=== PATIENT | male | born 1960 | race Caucasian/White ===

== ENCOUNTER 2022-12-09 13:36 | Emergency (ER) | payer OTHER ==
--- OUTSIDE RECORDS SUMMARY | 2022-12-09 13:40 | XMS REPORT | Continuity of Care Document ---
:1960 Author Organization [facility] t Address [address] [place] [address] Care Team Providers Name Role Phone Pcp, Patient Does Not Have A Primary Care Physician [id number] Sera Holley MD Attending Clinician Becky Heath MD Attending Clinician Agata Gerardo MA Attending Clinician Unavailable Tracie Eagle RN Attending Clinician Unavailable Only, Ang Db Test Attending Clinician Unavailable Nirmala Rm Attending Clinician NIRMALA MONIQUE Attending Clinician Unavailable Payers Payer Name Policy Type Policy Number Effective Date Expiration Date S ource Problems Condition Condition Condition Status Onset Resolution Last Treating Co mments Source Name Details Category Date Date Treatment Clinician Date 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 06-14 st 00:00: Hospita 00 l 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 00:00: Hospita due to due to 00 l lipid rich lipid rich plaque plaque Agatston Agatston Disease Active Metho di CAC score, CAC score, 03-20 st <100 <100 00:00: Hospita 00 l Allergies, Adverse Reactions, Alerts Allergy Allergy Status Severity Reaction(s) Onset Inactive Treating Comm ents Source Name Type Date Date Clinician NO KNOWN Drug Active Univers ALLERGIE Class ity of S [facility] Social History Social Habit Start Date Stop Date Quantity Comments Source Exposure to [facility]-CoV-2 [facility] (event) Branch Alcohol intake 2022-08-05 2022-08-05 Current drinker [facility] 00:00:00 00:00:00 of alcohol (finding) Tobacco use and 2022-02-26 2022-02-26 Smokeless tobacco [facility] Hospital exposure 00:00:00 00:00:00 non-user Alcohol Comment 2022-02-26 2022-02-26 [facility]00 twice per year Sex Ass[birth year] At [birth year] [facility] 00:00:00 00:00:00 Smoking Status Start Date Stop Date Source Unknown if ever smoked [facility] Never smoked tobacco [facility] ospital Medications Ordered Filled Start Stop Current Ordering Indication Dosage Frequency Signature Comments Components Source Medication Medication Date Date Medication? Clinician (SIG) Name Name cholecalcif Yes 2000U QD Take 2,000 Methodi silvia, 1-03 Units by vitamin D3, 13:33: mouth Hospi ta 50 mcg 12 daily. l (2,000 unit) capsule capsule ascorbic Yes 1000mg QD Take 1,000 M ethodi acid, 1-03 mg by vitamin C, 13:33: mouth Hospit a (VITAMIN C) 12 daily. l 1000 MG tablet multivitami Yes 1{tbl} QD Take 1 Me thodi n tablet 1-03 tablet by 13:33: mouth Hospita 12 daily. l zinc Yes 1{capsu QD Take 1 Methodi sulfate 1-03 le} capsule by (ZINCATE) 13:33: mouth Hospita 50 mg zinc 12 daily. l (220 mg) capsule atorvastati 2021-10- No [id number] 10mg QD Take 1 Methodi n (LIPITOR) 1-21 02-20 tablet (10 s t 10 mg 00:00: 05:59 mg total) Hospit a tablet 00 :00 by mouth l daily for 90 days. atorvastati 2021- No [id number] 10mg QD Take 1 Methodi n (LIPITOR) 8-25 11-21 tablet (10 s t 10 mg 00:00: 00:00 mg total) Hospit a tablet 00 :00 by mouth l daily for 90 days. atorvastati 2021- No [id number] 10mg QD Take 1 Methodi n (LIPITOR) 03-20 tablet (10 s t 10 mg 00:00: 00:00 mg total) Hospit a tablet 00 :00 by mouth l daily for 90 days. turmeric/tu 2020-10 Yes Method i rmeric 11-17 st ext/pepr 00:00: Hospita ext 00 l (turmeric-t urmeric ext-pepper) 900-100-5 mg capsule glucosamine 2020-10 Yes Method i -chondroit- 11-17 st vit C-Mn 00:00: Hospita capsule 00 l aspirin 2020-10- No 81mg Take 81 mg Met hodi (ECOTRIN) 10-[address] 81 MG 00:00: 00:00 Hospita enteric 00 :00 l coated tablet psyllium 2018-10 Yes Methodi husk 0.4 11-17 st gram 00:00: Hospita capsule 00 l No known No [facility] No [facility] medications [facility] No known No Univers medications [facility] Immunizations Ordered Immunization Filled Immunization Date Status Commen ts Source Name Name Zoster Vaccine 2022-08-05 Completed [facility] Recombinant 00:00:00 [facility] Zoster Vaccine 2022-02-26 Completed [facility] Recombinant 00:00:00 [facility] FLUZONE QUAD PF 2021-08-23 Completed [facility] 00:00:00 [facility] MODERNA COVID-19 2021-02-05 Completed Methodis t MRNA VACCINATION 00:00:00 Hospital MODERNA COVID-19 2021-01-08 Completed Methodis t MRNA VACCINATION 00:00:00 Hospital FLUZONE QUAD PF 2020-09-11 Completed [facility] 00:00:00 Hospital Tdap 2018-08-02 Completed [facility] 00:00:00 Hospital Zoster 2018-08-02 Completed [facility] 00:00:00 Hospital Vital Signs Vital Name Observation Time Observation Value Comments Source Systolic blood 2022-10-21 19:30:00 162 mm[Hg] Method ist Hospital pressure Diastolic blood 2022-10-21 19:30:00 85 mm[Hg] [facility] Hospital pressure Heart rate 2022-10-21 19:30:00 60 /min [facility] Respiratory rate 2022-10-21 19:30:00 18 /min [facility] Body height 2022-10-21 19:30:00 177.8 cm [facility] Body weight 2022-10-21 19:30:00 72.122 kg [facility] BMI 2022-10-21 19:30:00 22.81 kg/m2 [facility] Oxygen saturation in 2022-10-21 19:30:00 99 /min [facility] Arterial blood by Pulse oximetry Body temperature 2022-02-26 18:16:00 36.61 Amanda [facility] Procedures Procedure Date / Time Performing Clinician Source Performed CBC WITH PLATELET AND 2022-11-07 [facility]22-11-07 [facility] WITH INR 2022-11-07 15:15[facility]00 [facility] 2022-11-07 [facility] AND 2022-08-06 15:29:00 [facility] MICROSCOPY, WITH REFLEX TO CULTURE CBC WITH PLATELET AND 2022-08-06 12:23:00 [facility] DIFFERENTIAL COMPREHENSIVE METABOLIC 2022-08-06 12:23:00 [facility] PANEL HEMOGLOBIN A1C 2022-08-06 12:23:[address] [facility] THYROID STIMULATING 2022-08-06 12:23:00 [facility] HORMONE T4, FREE 2022-08-06 12:23:[address] [facility] LIPID PANEL 2022-08-06 12:23:[address] [facility] VITAMIN D 25 HYDROXY 2022-08-06 12:23:00 [facility] LEVEL HEPATITIS C ANTIBODY 2022-08-06 12:23:00 [facility] PROSTATE SPECIFIC ANTIGEN 2022-08-06 12:23:[address] [facility] ECG 12-LEAD 2022-08-05 20:28:[address] [facility] COMPREHENSIVE METABOLIC 2022-06-13 12:25:00 [facility] PANEL LIPID PANEL 2022-06-13 12:25:[address] [facility] CT CARDIAC CALCIUM SCORE 2022-03-11 19:45:42 [facility] T4, FREE 2022-02-26 19:41:[address] [facility] VITAMIN D 25 HYDROXY 2022-02-26 19:41:00 [facility] LEVEL URINALYSIS, COMPLETE, 2022-02-26 19:41:00 [facility] WITH REFLEX TO CULTURE HEPATIC FUNCTION PANEL 2022-02-26 19:41:00 [facility] THYROID STIMULATING 2022-02-26 19:41:00 [facility] HORMONE Plan of Care Planned Activity Planned Date Details Comments Source Future Scheduled 2022-12-09 Pneumococcal Vaccine: [facility] Test 09:20:34 Pediatrics (0 to 5 Years) and At-Risk Patients (6 to 64 Years) (1 - PCV) [code = Pneumococcal Vaccine: Pediatrics (0 to 5 Years) and At-Risk Patients (6 to 64 Years) (1 - PCV)] Future Scheduled 2022-12-09 COLONOSCOPY SCREENING [facility] Test 09:20:34 [code = COLONOSCOPY SCREENING] Encounters Start End Encounter Admission Attending Care Care Encounter Source Date/Time Date/Time Type Type Clinicians Facility Department ID 2022-12-09 2022-12-09 Refill Kishan 1.2.840.1 [id number] Methodi 00:00:00 00:00:[address] 3.430.2.7 Hospit a .3.782895 l .8 2022-10-21 2022-10-21 Office Rosey Heath2.840.1 [id number] Methodi 13:30:00 14:24:07 Visit Becky Croft 68167.1.[address] 3.430.2.7 Hospit a .3.944602 l .8 2022-10-21 2022-10-21 [facility] [id number] [place] 00:00:00 00:00:00 BECKY Hooper[address] [facility] [address] 2022-10-21 2022-10-21 Travel 1.2.840.1 1.2.357.426 [id number] Methodi 00:00:00 00:00:[address] 3.430.2.7 0.2.7.3.698 Ho spita .3.946849 084.8 l .8 2022-09-08 2022-09-08 Orders Kishan, 1.2.840.1 [id number] Methodi 00:00:00 00:00:00 Only Sera [address]2013.1.[address] 3.430.2.7 Hospit a .3.926287 l .8 2022-09-08 2022-09-08 Refill Kishan, 1.2.840.1 [id number] Methodi 00:00:00 00:00:[address] 3.430.2.7 Hospit a .3.311801 l .8 2022-08-22 2022-08-22 Abstract Akin, 1.2.840.1 [id number] 2099 [id number] Methodi 00:00:00 00:00:[address] 3.430.2.7 Hospit a .3.765680 l .8 2022-08-22 2022-08-22 Travel 1.2.840.1 1.2.418.948 5635 [id number] Methodi 00:00:00 00:00:[address] 3.430.2.7 0.2.7.3.698 Ho spita .3.184060 084.8 l .8 2022-08-22 2022-08-22 Telephone Akin, 1.2.840.1 [id number] Methodi 00:00:00 00:00:[address] 3.430.2.7 Hospit a .3.206489 l .8 2022-08-17 2022-08-17 Orders Kishan, 1.2.840.1 [id number] Methodi 00:00:00 00:00:00 Only Sera 03687.1.[address] 3.430.2.7 Hospit a .3.021746 l .8 2022-08-05 2022-08-05 Office Kishan, 1.2.840.1 [id number] Methodi 15:20:00 16:08:31 Visit Sera 34254.1.[address] 3.430.2.7 Hospit a .3.423657 l .8 2022-08-05 2022-08-05 Outpatient [facility] [id number] [place] 00:00:00 00:00:[address] 2022-08-05 2022-08-05 Travel 1.2.840.1 1.2.255.500 [id number] Methodi 00:00:00 00:00:[address] 3.430.2.7 0.2.7.3.698 Ho spita .3.444452 084.8 l .8 2022-06-14 2022-06-14 Orders Kishan, 1.2.840.1 [id number] Methodi 00:00:00 00:00:00 Only Sera 71976.1.[address] 3.430.2.7 Hospit a .3.399970 l .8 2022-06-12 2022-06-12 Orders Kishan, 1.2.840.1 [id number] Methodi 00:00:00 00:00:00 Only Sera 49397.1.[address] 3.430.2.7 Hospit a .3.584146 l .8 2022-03-20 2022-03-20 Orders Kishan, 1.2.840.1 [id number] Methodi 00:00:00 00:00:00 Only Sera 57997.1.[address] 3.430.2.7 Hospit a .3.902165 l .8 2022-03-11 2022-03-11 Hospital [facility], 1.2.840.1 [id number] Methodi 14:00:00 23:59:00 Encounter Sera 89634.1.1 299 [address] t 3.430.2.7 Hospit a .3.250278 l .8 2022-03-11 2022-03-11 Outpatient [facility] [id number] Willis 00:00:00 00:00:00 SERA [address] 2022-03-11 2022-03-11 Travel 1.2.840.1 1.2.483.466 [id number] [id number] Methodi 00:00:00 00:00:[address] 3.430.2.7 0.2.7.3.698 Ho spita .3.550465 084.8 l .8 2022-02-27 2022-02-27 Travel 1.2.840.1 1.2.986.358 5258 [id number] Methodi 00:00:00 00:00:[address] 3.430.2.7 0.2.7.3.698 Ho spita .3.661495 084.8 l .8 2022-02-26 2022-02-26 [facility], 1.2.840.1 [id number] 02011 Methodi 13:20:00 14:52:36 Visit Sera 42351.1.[address] 3.430.2.7 Hospit a .3.310843 l .8 2022-02-26 2022-02-26 Outpatient [facility] [id number] Willis 00:00:00 00:00:00 SERA [address] 2022-02-26 2022-02-26 Travel 1.2.840.1 1.2.570.229 [id number] [id number] Methodi 00:00:00 00:00:[address] 3.430.2.7 0.2.7.3.698 Ho spita .3.282163 084.8 l .8 2021-06-17 2021-06-17 Telephone EROS Eagle 1.2.806.029 [id number] Univers 00:00:00 00:00:00 Tracie RIVERA 350.1.13.10 ity of [facility] 4.2.7.2.686 Josiah as [phone] [address] 2021-06-16 2021-06-16 Laboratory Only, Ang Db Test [facility] 1.2.8 40.114 [id number] [facility] 09:03:49 09:18:49 Only Priscillatasiadoug Ridemakerz 350.1.13.10 ity of [place] 4.2.7.2.686 Josiah as Horace?Blea [id number] [address] Medical Office Building 2021-06-16 2021-06-16 Outpatient [facility] [id number] [facility] 09:00:00 09:00:00 [facility] Results Test Description Test Time Test Comments Results Result Comments Source Comprehensive metabolic panel 2022-11-08 09:40:00 Test Item Value Reference Range Interpretation Comme nts Glucose (test code = 86 mg/dL 65-99 Fastin g reference 2345-7) interval BUN (test code = 3094-0) 20 mg/dL 7-25 Creatinine (test code = 1.08 mg/dL 0.70-1.35 2160-0) eGFR (test code = 77 See_Comment [place] [address]-0) the CKD-EPI 202 1 equation. To ca lculate the new eGFR fr om a previous Creati nine or Cystatin Cresul t, go to https://www.kid madhavi.org/ professionals/k doqi/gfr %5Fcalculator [Automated mess age] The system which ge nerated this result tra nsmitted reference range : > OR = 60 mL/min/1.73m 2. The reference range was not used to interpr et this result as normal/abnormal . BUN/creatinine ratio NOT APPLICABLE See_Comment [Aut omated message] (test code = 3097-3) The s tem which generated this result transmitted ref erence range: 6 - 22 ( calc). The reference r patrick was not used to int erpret this result as normal/abnormal . Sodium (test code = 140 mmol/L 922-216 8436-2) Potassium (test code = 4.5 mmol/L 3.5-5.3 2823-3) Chloride (test code = 104 mmol/L 98-110 2075-0) CO2 (test code = 8-9) 32 mmol/L 20-32 Calcium (test code = 9.4 mg/dL 8.6-10.3 14825-2) Protein (test code = 6.9 g/dL 6.1-8.1 2885-2) Albumin, S (test code = 4.4 g/dL 3.6-5.1 1751-7) Globulin, total (test 2.5 See_Comment [Auto mated message] code = 50962-1) The system w hich generated this result transmitted ref erence range: 1.9 - 3. 7 g/dL (calc). The ref erence range was not u sed to interpret this result as normal/abnor mal. Albumin/globulin ratio 1.8 See_Comment [Aut omated message] (test code = 1759-0) The sys tem which generated this result transmitted ref erence range: 1.0 - 2. 5 (calc). The ref erence range was not u sed to interpret this result as normal/abnor mal. Total bilirubin (test 1.2 mg/dL 0.2-1.2 code = 1974-2) Alkaline phosphatase 74 U/L 35-144 (test code = 6768-6) AST (test code = 1920-8) 16 U/L 10-35 ALT (test code = 1742-6) 20 U/L 9-46 KRISTIN (test code = KRISTIN) FASTING:YES FASTING: YES RAC (test code = RAC) Performing Organization Information: Site ID: RGA Name: [employer] Address: [address] [place] [phone] Director: Danny CasarezCentraState Healthcare SystemBilirubin [id number] 09:40:00 Test Item Value Reference Range Interpretation Comments Bilirubin direct 0.3 mg/dL See_Comment H [Automated (test code = 1968-7) message ] The system which generated this result transmitted reference range : < OR = 0.2. The reference range was not used to interpret this result as normal/abnormal . KRISTIN (test code = FASTING:YES KRISTIN) FASTING: YES RAC (test code = Performing RAC) Organization Information: Site ID: RGA Name: [employer] Address: [address] [place] [phone] Director: Danny Cruz Lab Interpretation Abnormal (test code = 35406-7) [facility] with platelet and [id number] 09:40:00 Test Item Value Reference Range Interpretation Comments WBC (test code = 5.4 See_Comment [Automated 6690-2) message] The system which generated this result transmitted reference range : 3.8 - 10.8 Thousand/uL. Th e reference range was not used to interpret this result as normal/abnormal . RBC (test code = 5.05 See_Comment [Automated 789-8) message] The system which generated this result transmitted reference range : 4.20 - 5.80 Million/uL. The reference range was not used to interpret this result as normal/abnormal . HGB (test code = 15.2 g/dL 13.2-17.1 718-7) HCT (test code = 44.7 % 38.5-50.0 4544-3) MCV (test code = 88.5 fL 80.0-100.0 787-2) MCH (test code = 30.1 pg 27.0-33.0 785-6) MCHC (test code = 34.0 g/dL 32.0-36.0 786-4) RDW (test code = 11.9 % 11.0-15.0 788-0) Platelet count 179 See_Comment [Automated (test code = message] The 777-3) system which generated this result transmitted reference range : 140 - 400 Thousand/uL. Th e reference range was not used to interpret this result as normal/abnormal . MPV (test code = 10.3 fL 7.5-12.5 776-5) Neutrophils, 3073 See_Comment [Automated absolute (test message] The code = 751-8) system which generated this result transmitted reference range : 1,500 - 7,800 cells/uL. The reference range was not used to interpret this result as normal/abnormal . Lymphocytes, 1809 See_Comment [Automated absolute (test message] The code = 731-0) system which generated this result transmitted reference range : 850 - 3,900 cells/uL. The reference range was not used to interpret this result as normal/abnormal . Monocytes, 427 See_Comment [Automated absolute (test message] The code = 742-7) system which generated this result transmitted reference range : 200 - 950 cells/uL. The reference range was not used to interpret this result as normal/abnormal . Eosinophils, 59 See_Comment [Automated absolute (test message] The code = 711-2) system which generated this result transmitted reference range : 15 - 500 cells/uL. The reference range was not used to interpret this result as normal/abnormal . Basophils, 32 See_Comment [Automated absolute (test message] The code = 704-7) system which generated this result transmitted reference range : 0 - 200 cells/u L. The reference range was not used to interpr et this result as normal/abnormal . Neutrophils (test 56.9 % code = 770-8) Lymphocytes (test 33.5 % code = 736-9) Monocytes (test 7.9 % code = 5905-5) Eosinophils (test 1.1 % code = 713-8) Basophils + RC 0.6 % (test code = 706-2) KRISTIN (test code = FASTING:YES KRISTIN) FASTING: YES RAC (test code = Performing RAC) Organization Information: Site ID: RGA Name: [employer] Address: [address] [place] [phone] Director: Danny Cruz [facility] CenterProthrombin time with [id number] 09:40:00 Test Item Value Reference Range Interpretation Comments INR (test code = 1.0 Reference R patrick 6301-6) 0.9-1.1Moderate -i ntensity Warfar in Therapy 2.0-3.0Higher-i nt ensity Warfarin Therapy 3.0-4.0 Prothrombin time 10.5 See_Comment For additio nal (test code = information, 5902-2) please refer tohttp://educat io n.RecordSleddiagnost Boost Your Campaign/faq/FAQ10 4( This link is being provided for informational/e du cational purpos es only.) [Automat ed message] The system which generated this result transmitted reference range : 9.0 - 11.5 sec. The reference range was not used to interpr et this result as normal/abnormal . KRISTIN (test code = FASTING:YES KRISTIN) FASTING: YES RAC (test code = Performing RAC) Organization Information: Site ID: RGA Name: [employer] Address: [address] [place] [phone] Director: Danny Cruz [facility] CenterLipid [id number] 01:17:00 Test Item Value Reference Range Interpretation Comments Cholesterol, total 126 mg/dL <=200 (test code = 2093-3) HDL cholesterol 55 mg/dL See_Comment [Automated (test code = 2084-) message ] The system which generated this result transmitted reference range : > OR = 40. The reference range was not used to interpret this result as normal/abnormal . Triglycerides (test 55 mg/dL <=150 code = 2571-8) LDL cholesterol 57 mg/dL (calc) Reference ra nge: calculated (test <100 Desira ble code = 89519-5) range <100 m g/dL for primary prevention; <70 mg/dL for patients with C HD or diabetic patients with > or = 2 CHD risk factors. LDL-C is now calculated using the Gregor-Tressa calculation, which is a validated novel method providin g better accuracy than the Friedewald equation in the estimation of LDL-C. Gregor S S et al. JOSE MANUEL. 2013;310(19): 9605-6006 (http://educati on .[employer] .com/faq/KZE456 ) Cholesterol/HDL 2.3 See_Comment [Automated ratio (test code = message] The 9830-1) system which generated this result transmitted reference range : <5.0 (calc). Th e reference range was not used to interpret this result as normal/abnormal . Non-HDL cholesterol 71 See_Comment For justice ents with (test code = diabetes plus 1 65754-3) major ASCVD ris k factor, treatin g to a non-HDL-C goal of <100 mg/dL (LDL-C of <70 mg/dL) is considered a therapeutic option. [Automated message] The system which generated this result transmitted reference range : <130 mg/dL (calc). The reference range was not used to interpret this result as normal/abnormal . KRISTIN (test code = FASTING:YESPATIENT KRISTIN) UNABLE TO VOID; ADVISED TO RETURN FOR COLLECTION. FASTING: YES RAC (test code = Performing RAC) Organization Information: Site ID: RGA Name: [facility] Address: [address] [place] [phone] Director: Danny ColemanWadley [facility] Medical CenterHemoglobin [id number] 01:17:00 Test Item Value Reference Range Interpretation Comments Hemoglobin A1C 5.4 See_Comment For the purpo se of (test code = screening for t he 4548-4) presence ofdiab etes: <5.7% Consisten t with the absence of diabetes5.7-6.4 % Consistent with increased risk for diabetes (prediabetes)> or =6.5% Consisten t with diabetes This a ssay result is consi stent with a decrease d riskof diabetes . Currently, no consensus exist s regarding use ofhemoglobin A1 c for diagnosis of di abetes in children. According to [place] Diabetes Associ ation (ADA)guidelines , hemoglobin A1c <7.0% represents optimalcontrol in non- di abetic patients. Differentmetric s may apply to specif ic patient populat ions. Standards of Me dical Care in Diabetes(ADA). [Automated mess age] The system [employer] generated this result transmitted ref erence range: <5.7 % o f total Hgb. The reference range was not used to int erpret this result as normal/abnormal . KRISTIN (test code = FASTING:YESPATIENT KRISTIN) UNABLE TO VOID; ADVISED TO RETURN FOR COLLECTION. FASTING: YES RAC (test code = Performing RAC) Organization Information: Site ID: RGA Name: [facility] Address: [address] [place] [phone] Director: Danny ColemanW[facility] CenterProstate specific [id number] 01:17:00 Test Item Value Reference Range Interpretation Comments PSA (test 0.52 ng/mL See_Comment The total PSA v alue code = from this assay system 2857-1) is standardized against the WHO standar d. The test result kervin l be approximately 2 0% lower when compared t o the equimolar-stand ardized total PSA (Reza YuanV Jessica). Parminder rison of serial PSA resu lts should be inter preted with this fact in mind. This test was p erformed using the [employer] ns chemiluminescen t method. Values obtained from different assay methods cannot be usedinterchange ably. PSA levels, reg ardless ofvalue, should not be interpreted as absoluteevidenc e of the presence or abs ence of disease. [Autom ated message] The sy stem which generated this result transmit rhea reference range : < OR = 4.00. The refer ence range was not u sed to interpret this result as normal/abnor mal. KRISTIN (test FASTING:YESPATIENT code = KRISTIN) UNABLE TO VOID; ADVISED TO RETURN FOR COLLECTION. FASTING: YES RAC (test Performing code = RAC) Organization Information: Site ID: [facility] Name: [employer] Address: [address] [place], [place] [address] Director: [place] [address], [id number] 01:17:00 Test Item Value Reference Range Interpretation Comments T4, free (test code 1.2 ng/dL 0.8-1.8 = 3024-7) KRISTIN (test code = FASTING:YESPATIENT UNABLE KRISTIN) TO VOID; ADVISED TO RETURN FOR COLLECTION. FASTING: YES RAC (test code = Performing Organization RAC) Information: Site ID: [facility] Name: [employer] Address: [address] [place] [phone] Director: [facility] HospitalThyroid stimulating [id number] 01:17:00 Test Item Value Reference Range Interpretation Comments TSH (test 2.38 See_Comment [Automated mes young] code = The system ic h 3016-3) generated this result transmit rhea reference range : 0.40 - 4.50 mIU /L. The reference r patrick was not used to interpret this result as normal/abnormal . KRISTIN (test FASTING:YESPATIENT code = KRISTIN) UNABLE TO VOID; ADVISED TO RETURN FOR COLLECTION. FASTING: YES RAC (test Performing code = RAC) Organization Information: Site ID: [facility] Name: [employer] Address: [address] [place] [phone] Director: [facility] HospitalVitamin D 25 hydroxy [id number] 01:17:00 Test Item Value Reference Range Interpretation Comments Vitamin D, 47 ng/mL 30-100 Vitamin D Statu s 25-hydroxy (test 25-OH Vitam in D: code = 1989-) Deficiency: < 20 ng/mLInsufficie ncy : 20 - 29 ng/mLOptimal: > or = 30 ng/mL For 25-OH Vitamin D testing on patients on D2-supplementat ion and patients fo r whom quantitati on of D2 and D3 fractions is required, the QuestAssureD(TM )25 -OH VIT D, (D2,D3), LC/MS/ MS is recommended: order code 9288 8 (patients >2yrs).See Note 1 Note 1 For additional information, please refer to [email or web address] [email or web address] [email or web address] .Cogo m/faq/NHJ413 (T his link is being provided for informational/e shyanne ational purpose s only.) KRISTIN (test code = FASTING:YESPATIENT KRISTIN) UNABLE TO VOID; ADVISED TO RETURN FOR COLLECTION. FASTING: YES RAC (test code = Performing RAC) Organization Information: Site ID: [facility] Name: [employer] Address: [address] [place] [address] Director: [facility] HospitalHepatitis C [id number] 01:17:00 Test Item Value Reference Range Interpretation Comments Hepatitis C Ab NON-REACTIVE NON-REACTIVE (test code = 99102-8) Signal/cutoff 0.08 <=1.00 HCV antibody was (test code = non-reactive. 65875-1) There is no laboratory evidence of HCV infection. In m ost cases, no furth er action is required. However,if rece nt HCV exposure is suspected, a te st for HCV RNA(juana t code 17705) is suggested. For additional information ple ase refer tohttp://educat ion .Countercepts. com/faq/JLT53g0 (Th is link is bein g provided for informational/e shyanne ational purpose s only.) KRISTIN (test code = FASTING:YESPATIENT KRISTIN) UNABLE TO VOID; ADVISED TO RETURN FOR COLLECTION. FASTING: YES RAC (test code = Performing RAC) Organization Information: Site ID: [facility] Name: [employer] Address: [address] [place] [phone] Director: Danny CasarezCentraState Healthcare SystemUrinalysis screen and microscopy, with reflex to culture 2022-08-07 01:35:00 Test Item Value Reference Range Interpretation Comments Color, UA (test YELLOW YELLOW code = 5778-6) Appearance (test CLEAR CLEAR code = 5767-9) Specific gravity, 1.015 1.001-1.035 urine (test code = 5811-5) pH, urine (test 6.0 5.0-8.0 code = 5803-2) Glucose, urine NEGATIVE NEGATIVE (test code = 97828-0) Bilirubin, UA NEGATIVE NEGATIVE (test code = 5770-3) Ketones, UA (test NEGATIVE NEGATIVE code = 2514-8) Occult blood, NEGATIVE NEGATIVE urine (test code = 5794-3) Protein, UA (test NEGATIVE NEGATIVE code = 03231-7) Nitrite, UA (test NEGATIVE NEGATIVE code = 5802-4) Leukocyte NEGATIVE NEGATIVE esterase, UA (test code = 5799-2) WBC, UA (test NONE SEEN See_Comment [Automated code = 5821-4) message] The system which generated this result transmit rhea reference range : < OR = 5 /HPF. Th e reference range was not used to interpret this result as normal/abnormal . RBC, UA (test NONE SEEN See_Comment [Automated code = 45358-8) message] The system which generated this result transmit rhea reference range : < OR = 2 /HPF. Th e reference range was not used to interpret this result as normal/abnormal . Squamous NONE SEEN See_Comment [Automated epithelial cells, message] T he UA (test code = system which 87278-8) generated this result transmit rhea reference range : < OR = 5 /HPF. Th e reference range was not used to interpret this result as normal/abnormal . Bacteria, UA NONE SEEN NONE SEEN /HPF (test code = 5769-5) Hyaline casts, UA NONE SEEN NONE SEEN /LPF (test code = 5796-8) Note: (test code This urine was = 8251-1) analyzed for th e presence of WBC , RBC, bacteria, casts, and othe r formed elements . Only those elements seen w ere reported. Reflex (test code NO CULTURE = 630-4) INDICATED KRISTIN (test code = SPLIT 08/06/2022 KRISTIN) FROM [id number] RAC (test code = Performing RAC) Organization Information: Site ID: [facility] Name: [employer] Address: [address] [place] [phone] Director: Danny Cruz [facility] CenterEC [id number] 01:02:57 Test Item Value Reference Range Interpretation Comments Ventricular rate (test 48 code = 253) Atrial rate (test code = 48 255) AZ interval (test code = 126 266) QRSD interval (test code 102 = 260) QT interval (test code = 410 264) QTC interval (test code 366 = 265) P axis 1 (test code = 58 267) QRS axis 1 (test code = 85 268) T wave axis (test code = 79 270) EKG impression (test Sinus code = 273) bradycardia-Otherwise normal ECG-No previous ECGs available-Electronica lly Signed By Sera Holley MD ([id number]) on 08/05/2022 8:02:56 PM [facility] CenterHepatic function [id number] 07:59:00 Test Item Value Reference Range Interpretation Comments Protein (test code 7.0 g/dL 6.1-8.1 = 2885-2) Albumin, S (test 4.2 g/dL 3.6-5.1 code = 1751-7) Globulin, total 2.8 See_Comment [Automated (test code = message] The 66061-6) system which generated this result transmitted reference range : 1.9 - 3.7 g/dL (calc). The reference range was not used to interpret this result as normal/abnormal . Albumin/globulin 1.5 See_Comment [Automated ratio (test code = message] The ) system which generated this result transmitted reference range : 1.0 - 2.5 (calc ). The reference range was not used to interpr et this result as normal/abnormal . Total bilirubin 0.8 mg/dL 0.2-1.2 (test code = 1974-) Bilirubin direct 0.2 mg/dL See_Comment [Automated (test code = message] The 1968-04) system which generated this result transmitted reference range : < OR = 0.2. The reference range was not used to interpret this result as normal/abnormal . Bilirubin, 0.6 See_Comment [Automated indirect (test message] The code = 1970-) system which generated this result transmitted reference range : 0.2 - 1.2 mg/dL (calc). The reference range was not used to interpret this result as normal/abnormal . Alkaline 71 U/L 35-144 phosphatase (test code = 6768-6) AST (test code = 16 U/L 10-35 1920-8) ALT (test code = 12 U/L 9-46 1742-6) KRISTIN (test code = FASTING:NO FASTING: KRISTIN) NO RAC (test code = Performing RAC) Organization Information: Site ID: [facility] Name: [employer] Address: [address] [place] [phone] Director: Danny Cruz [facility] CenterURINALYSIS, COMPLETE, WITH REFLEX TO [id number] 07:59:00 Test Item Value Reference Range Interpretation Comments Color, UA (test code YELLOW YELLOW = 5778-6) Appearance (test CLEAR CLEAR code = 5767-9) Specific gravity, 1.022 1.001-1.035 urine (test code = 5811-5) pH, urine (test code 6.5 5.0-8.0 = 5803-2) Glucose, urine (test NEGATIVE NEGATIVE code = 66886-5) Bilirubin, UA (test NEGATIVE NEGATIVE code = 5770-3) Ketones, UA (test TRACE NEGATIVE A code = 2514-8) Occult blood, urine NEGATIVE NEGATIVE (test code = 5794-3) Protein, UA (test NEGATIVE NEGATIVE code = 35864-7) Nitrite, UA (test NEGATIVE NEGATIVE code = 5802-4) Leukocyte esterase, NEGATIVE NEGATIVE UA (test code = 5799-2) WBC, UA (test code = NONE SEEN See_Comment [Autom ated 5821-4) message] The system which generated this result transmitted reference range : < OR = 5 /HPF. The reference range was not used to interpr et this result as normal/abnormal . RBC, UA (test code = NONE SEEN See_Comment [Autom ated 03172-6) message] The system which generated this result transmitted reference range : < OR = 2 /HPF. The reference range was not used to interpr et this result as normal/abnormal . Squamous epithelial NONE SEEN See_Comment [Automa rhea cells, UA (test code message ] The = 63339-6) system which generated this result transmitted reference range : < OR = 5 /HPF. The reference range was not used to interpr et this result as normal/abnormal . Bacteria, UA (test NONE SEEN NONE SEEN /HPF code = 5769-5) Hyaline casts, UA NONE SEEN NONE SEEN /LPF (test code = 5796-8) Reflex (test code = NO CULTU RE 630-4) INDICATED KRISTIN (test code = FASTING:NO KRISTIN) FASTING: NO RAC (test code = Performing RAC) Organization Information: Site ID: [facility] Name: [employer] Address: [address] [place] [phone] Director: Danny Cruz Lab Interpretation Abnormal (test code = 67145-3) [facility]
[2022-12-09] MEDS ORDERED: PANTOPRAZOLE 40 MG INJ ONE (14:28)
[2022-12-09] MEDS ORDERED: GLUCAGON 1 MG/VIAL ONE ×2 (14:28→15:32)
[2022-12-09] MEDS ORDERED: dexAMETHasone 10 MG/ML VIAL ONE (14:28)
--- NOTE | 2022-12-09 16:41 | ER ---
Nurse's Notes [facility] Name: Eduardo Keyes Age: 62 yrs Sex: Male : 1960 Arrival Date: 12/09/2022 Time: 13:41 Bed 15 Private MD: Diagnosis: Esophagitis, unspecified;Dysphagia, unspecified Presentation: 12/09 13:48 Coronavirus screen: At this time, the client does not indicate any symptoms associated ap3 with coronavirus-19. Ebola Screen: No symptoms or risks identified at this time. 13:48 Method Of Arrival: Ambulatory ap3 13:51 Chief complaint: Patient states: he took some supplements this morning, and feels they ap3 are stuck in his esophagus and they are preventing him from swallowing properly. patient states this has happened before, but he has been able to clear it himself however this time he hasn't been able to. Initial Sepsis Screen: Does the patient meet any 2 criteria? No. Patient's initial sepsis screen is negative. Does the patient have a suspected source of infection? No. Patient's initial sepsis screen is negative. Risk Assessment: Do you want to hurt yourself or someone else? Patient reports no desire to harm self or others. Onset of symptoms was December 09, 2022. 13:57 Acuity: RACIEL 3 ap3 Triage Assessment: 13:53 General: Appears in no apparent distress. Behavior is cooperative. Pain: Denies pain. ap3 Neuro: Level of Consciousness is awake, alert, obeys commands, Oriented to person, place, time, situation. Cardiovascular: Patient's skin is warm and dry. Respiratory: Airway is patent Respiratory effort is even, unlabored, Respiratory pattern is regular, symmetrical. GI: Reports nausea, vomiting, feeling that something is lodged in his esophagus that he can't dislodge. Historical: - Allergies: 13:49 No Known Allergies; ap3 - Home Meds: 13:49 Lipitor 10 mg Oral tab 1 tab once daily [Active]; ap3 - PMHx: 13:49 Hypercholesterolemia; ap3 - Immunization history:: Client reports receiving the 2nd dose of the Covid vaccine, Flu vaccine is up to date. - Social history:: Smoking status: Patient denies any tobacco usage or history of. - Family history:: not pertinent. - Hospitalizations: : No recent hospitalization is reported. Screenin:50 [facility] ED Fall Risk Assessment (Adult) History of falling in the last 3 months, ap3 including since admission No falls in past 3 months (0 pts). Abuse screen: Denies threats or abuse. Nutritional screening: No deficits noted. Tuberculosis screening: No symptoms or risk factors identified. Assessment: 14:00 General: Appears in no apparent distress. uncomfortable, Behavior is calm, cooperative, eh3 appropriate for age. Pain: Denies pain. Neuro: Level of Consciousness is awake, alert, obeys commands, Oriented to person, place, time, situation, Reports difficulty swallowing since 0830 today. Cardiovascular: Capillary refill < 3 seconds Patient's skin is warm and dry. Respiratory: Airway is patent Respiratory effort is even, unlabored, Respiratory pattern is regular, symmetrical. GI: Abdomen is flat, non-distended, Reports vomiting. : No signs and/or symptoms were reported regarding the genitourinary system. EENT: Throat is clear Reports difficulty swallowing. Derm: No signs and/or symptoms reported regarding the dermatologic system. Skin is pink, warm \T\ dry. Musculoskeletal: No signs and/or symptoms reported regarding the musculoskeletal system. Circulation, motion, and sensation intact. Range of motion: intact in all extremities. 14:30 Reassessment: Patient appears in no apparent distress at this time. Patient and/or eh3 family updated on plan of care and expected duration. Pain level reassessed. Patient is alert, oriented x 3, equal unlabored respirations, skin warm/dry/pink. 15:30 Reassessment: Patient appears in no apparent distress at this time. Patient and/or eh3 family updated on plan of care and expected duration. Pain level reassessed. Patient is alert, oriented x 3, equal unlabored respirations, skin warm/dry/pink. 16:20 Reassessment: Pt states he can swallow with no problem now. eh3 16:30 Reassessment: Patient appears in no apparent distress at this time. Patient and/or eh3 family updated on plan of care and expected duration. Pain level reassessed. Patient is alert, oriented x 3, equal unlabored respirations, skin warm/dry/pink. Vital Signs: 13:48 BP 155 / 90; Pulse 62; Resp 19; Temp 98.2; Pulse Ox 99% ; Weight 71.21 kg; Height 5 ft. ap3 10 in. (177.80 cm); 14:30 BP 136 / 78; Pulse 64; Resp 18; Pulse Ox 100% on R/A; eh3 15:30 BP 124 / 66; Pulse 71; Resp 18; Pulse Ox 100% on R/A; eh3 16:30 BP 122 / 69; Pulse 69; Resp 18; Pulse Ox 99% on R/A; eh3 13:48 Body Mass Index 22.53 (71.21 kg, 177.80 cm) ap3 ED Course: 13:41 Patient arrived in ED. am2 13:44 Andry Melvin MD is Attending Physician. rn 13:50 Arm band placed on left wrist. ap3 13:57 Triage completed. ap3 14:00 Patient has correct armband on for positive identification. Bed in low position. Call eh3 light in reach. Side rails up X2. Pulse ox on. NIBP on. Door closed. Noise minimized. Lights dimmed. Warm blanket given. 14:18 Rufina Bateman RN is Primary Nurse. eh3 16:20 Diet: Patient given water. Tolerated well. eh3 16:40 Theo Vasquez MD is Referral Physician. rn 16:50 No provider procedures requiring assistance completed. IV discontinued, intact, eh3 bleeding controlled, No redness/swelling at site. Pressure dressing applied. Administered Medications: 14:30 Drug: Glucagon 1 mg Route: IVP; Site: left antecubital; eh3 14:30 Drug: ProTONIX (pantoprazole) 40 mg Route: IVP; Site: left antecubital; eh3 14:30 Drug: Decadron - Dexamethasone 10 mg Route: IVP; Site: left antecubital; eh3 15:40 Drug: Glucagon 1 mg Route: IVP; Site: left antecubital; eh3 Medication: 13:50 VIS not applicable for this client. ap3 Outcome: 16:40 Discharge ordered by . rn 16:50 Discharged to home ambulatory, with family. eh3 16:50 Condition: stable 16:50 Discharge instructions given to patient, family, Instructed on discharge instructions, follow up and referral plans. medication usage, Demonstrated understanding of instructions, follow-up care, medications, Prescriptions given X 2. 16:54 Patient left the ED. eh3 Signatures: MelvinAndry MD MD rn Moreno, Amanda am2 Noemy Prince RN RN ap3 Rufina Bateman RN RN eh3 Corrections: (The following items were deleted from the chart) 16:48 15:00 Reassessment: Patient appears in no apparent distress at this time. Patient eh3 and/or family updated on plan of care and expected duration. Pain level reassessed. Patient is alert, oriented x 3, equal unlabored respirations, skin warm/dry/pink. eh3
--- NOTE | 2022-12-09 16:41 | EDPHYS ---
Physician Documentation [facility] Name: Eduardo Keyes Age: 62 yrs Sex: Male : 1960 Arrival Date: 12/09/2022 Time: 13:41 Bed 15 Private MD: ED Physician Andry Melvin HPI: 12/09 15:39 This 62 yrs old Male presents to ER via Ambulatory with complaints of Difficulty rn Swallowing. 15:39 The patient presents with dysphagia, a foreign body sensation in the throat. The rn patient describes throat pain as raw. Onset: The symptoms/episode began/occurred this morning. Severity of symptoms: At their worst the symptoms were moderate, in the emergency department the symptoms are unchanged. Modifying factors: The symptoms are alleviated by nothing, the symptoms are aggravated by fluids, swallowing. Associated signs and symptoms: Pertinent positives: dysphagia, Pertinent negatives fever. The patient has experienced similar episodes in the past. The patient has not recently seen a physician. Pt reports taking pills/supplements today, took 5 at one time and feels like got stuck in esophagus, has happened to him before, but usually gets better and usually only takes one at a time. Was fine prior to taking pills. . Historical: - Allergies: 13:49 No Known Allergies; ap3 - Home Meds: 13:49 Lipitor 10 mg Oral tab 1 tab once daily [Active]; ap3 - PMHx: 13:49 Hypercholesterolemia; ap3 - Immunization history:: Client reports receiving the 2nd dose of the Covid vaccine, Flu vaccine is up to date. - Social history:: Smoking status: Patient denies any tobacco usage or history of. - Family history:: not pertinent. - Hospitalizations: : No recent hospitalization is reported. ROS: 15:39 Constitutional: Negative for fever, chills, and weight loss, Eyes: Negative for injury, rn pain, redness, and discharge, Neck: Negative for injury, pain, and swelling, Cardiovascular: Negative for chest pain, palpitations, and edema, Respiratory: Negative for shortness of breath, cough, wheezing, and pleuritic chest pain, Abdomen/GI: Negative for abdominal pain, nausea, vomiting, diarrhea, and constipation. Exam: 15:39 Constitutional: This is a well developed, well nourished patient who is awake, alert, rn holding emesis bag Cardiovascular: Regular rate and rhythm. No pulse deficits. Respiratory: No increased work of breathing, no retractions or nasal flaring. Abdomen/GI: soft, non-tender Vital Signs: 13:48 BP 155 / 90; Pulse 62; Resp 19; Temp 98.2; Pulse Ox 99% ; Weight 71.21 kg; Height 5 ft. ap3 10 in. (177.80 cm); 14:30 BP 136 / 78; Pulse 64; Resp 18; Pulse Ox 100% on R/A; eh3 15:30 BP 124 / 66; Pulse 71; Resp 18; Pulse Ox 100% on R/A; eh3 16:30 BP 122 / 69; Pulse 69; Resp 18; Pulse Ox 99% on R/A; eh3 13:48 Body Mass Index 22.53 (71.21 kg, 177.80 cm) ap3 MDM: 13:44 Patient medically screened. rn 16:38 Differential diagnosis: gastroesophageal reflux disease, esophagitis, pill esophagitis. rn Data reviewed: vital signs, nurses notes, and as a result, I will discharge patient. Consideration of Admission/Observation Escalation of care including admission/observation considered. but patient passed swallow test and can keep fluids down, feels like obstruction has passed. I considered the following discharge prescriptions or medication management in the emergency department Medications were administered in the Emergency Department. See MAR. Counseling: I had a detailed discussion with the patient and/or guardian regarding: the historical points, exam findings, and any diagnostic results supporting the discharge/admit diagnosis, the need for outpatient follow up, to return to the emergency department if symptoms worsen or persist or if there are any questions or concerns that arise at home. Response to treatment: the patient's symptoms have markedly improved after treatment, and as a result, I will discharge patient. Special discussion: I discussed with the patient/guardian in detail that at this point there is no indication for admission to the hospital. It is understood, however, that if the symptoms persist or worsen the patient needs to return immediately for re-evaluation. Based on the history and exam findings, there is no indication for further emergent testing or inpatient evaluation. I discussed with the patient/guardian the need to see the manager credit collections for further evaluation of the symptoms. ED course: Pt passed PO challenge and feels much better, has now had 2 cups of water without problem. Most likely pill esophagitis, will dc home with instructions to f/u with GI for endoscopy to rule out stricture or malignancy. Return precautions given and understood. . 12/09 14:07 Order name: IV Start; Complete Time: 14:19 rn 12/09 15:20 Order name: PO challenge; Complete Time: 16:20 rn Administered Medications: 14:30 Drug: Glucagon 1 mg Route: IVP; Site: left antecubital; 3 14:30 Drug: ProTONIX (pantoprazole) 40 mg Route: IVP; Site: left antecubital; 3 14:30 Drug: Decadron - Dexamethasone 10 mg Route: IVP; Site: left antecubital; 3 15:40 Drug: Glucagon 1 mg Route: IVP; Site: left antecubital; 3 Disposition Summary: 12/09/22 16:40 Discharge Ordered Location: Home rn Problem: an acute exacerbation rn Symptoms: have improved rn Condition: Stable rn Diagnosis - Esophagitis, unspecified rn - Dysphagia, unspecified rn Followup: rn - With: Theo Vasquez MD - When: As needed - Reason: Recheck today's complaints, Re-evaluation by your physician Discharge Instructions: - Discharge Summary Sheet rn - Dysphagia rn - Esophagitis rn Forms: - Medication Reconciliation Form rn - Thank You Letter rn - Antibiotic learning strategist - Prescription Opioid Use rn Prescriptions: - Protonix 40 mg Oral Tablet - take 1 tablet by ORAL route once daily; 30 tablet; Refills: 0, Product rn Selection Permitted - Medrol (Ketan) 4 mg Oral Tablets, Dose Pack - take 1 tablet by ORAL route as directed - follow package instructions; 1 rn packet; Refills: 0, Product Selection Permitted Signatures: Andry Melvin MD MD rn Prokisch, Amanda RN RN ap3 Rufina Bateman RN RN eh3
[2022-12-09 16:59] VITALS: TEMP 98.2
[2022-12-09 17:02] VITALS: BP 122/69; O2SAT 99
== END 2022-12-09 16:54 | disposition home or self-care (01) ==
LOC: ER 13:36
DX: K20.90 Esophagitis, unspecified without bleeding (principal)
CPT/HCPCS: 96375; 96374; 99283; J1610 ×2; C9113; J1100